=== PATIENT | female | born 1990 | race Caucasian/White ===

== ENCOUNTER 2019-08-14 10:07 | Emergency (ER) | payer BC, SELFPAY ==
[2019-08-14] MEDS ORDERED: Ibuprofen 800 MG TAB ONE (10:45)
== END 2019-08-14 10:54 | disposition home or self-care (01) ==
LOC: BURERS 10:07
DX: S39.012A Strain of muscle, fascia and tendon of lower back, initial encounter (principal); S29.012A Strain of muscle and tendon of back wall of thorax, initial encounter; V53.5XXA Driver of pick-up truck or van injured in collision with car, pick-up truck or van in traffic accident, initial encounter
CPT/HCPCS: 99283

== ENCOUNTER 2025-03-16 20:28 | Emergency (ER) | payer BC | END 2025-03-16 21:10 | disposition left against medical advice (07) | LOC: BURERS 20:28 | DX: O86.01 Infection of obstetric surgical wound, superficial incisional site (principal) | CPT/HCPCS: 99283 ==